=== PATIENT | female | born 1955 | race African-American/Black ===

== ENCOUNTER → 2021-03-14 | Day surgery (SDC) | payer MEDICARE ==
[~2021-03-14] VITALS: Ht 162.6 cm; Wt 68.3 kg
[~2021-03-14] MED LIST: AMOXICILLIN500 MG PO; ASCORBIC ACID500 MG PO; ASPIRIN EC81 M1 PO; DICLOFENAC SODI50 MG PO; GLUCOPHAGE XR750 MG PO; GLUCOTROL10 MG PO; LIPITOR 10MG TA10 MG PO; LISINOPRIL-HCT1 EAC2 PO; METFORMIN HCL500 M2 PO; PERCOCET 5-3251 EACH PO; SINGULAIR10 MG PO
[2021-03-14 10:31] LABS: ALBUMIN 3.7 g/dL (3.4-5.0); BILIRUBIN - TOTAL 0.6 mg/dL (0.2-1.0); BUN/CREAT RATIO (CALC) 13.4 RATIO; CREATININE 0.82 mg/dL (0.51-0.95); GLOBULIN (CALCULATION) 3.5 g/dL; POTASSIUM 3.6 mmol/L (3.5-5.1); TOTAL PROTEIN 7.2 g/dL (6.4-8.2)
[2021-03-14 10:41] LABS: HCT 38.1 % (37.0-47.0); HGB 12.4 g/dl (12.5-16.0); MCH 30.8 pg (25.0-31.0); MCHC 32.5 g/dL (32.0-36.0); MCV 94.8 fL (78.0-100.0); RBC 4.02 M/uL (4.20-5.40); RDW 13.5 % (11.5-14.0); WBC 7.8 K/uL (4.0-10.5)
== END | disposition home or self-care (01) ==
LOC: FAS 02-28 07:00
PROVIDERS: Orthopaedic Surgery
DX: G56.03 Carpal tunnel syndrome, bilateral upper limbs (principal); E11.9 Type 2 diabetes mellitus without complications; F17.210 Nicotine dependence, cigarettes, uncomplicated; I10 Essential (primary) hypertension; E78.5 Hyperlipidemia, unspecified; M19.90 Unspecified osteoarthritis, unspecified site; Z79.82 Long term (current) use of aspirin; Z79.84 Long term (current) use of oral hypoglycemic drugs; Z79.899 Other long term (current) drug therapy; Z88.5 Allergy status to narcotic agent
CPT/HCPCS: 36415; 80053; J2250; J2405; J2704; J3010; J7120

== ENCOUNTER → 2021-10-17 | Day surgery (SDC) | payer MEDICARE ==
[~2021-10-17] VITALS: Ht 162.6 cm; Wt 68.3 kg
[~2021-10-17] MED LIST changes: +LASIX20 MG PO; +VITAMIN D310 MC1 PO; +[UNRECOGNIZED DRUG - OTHER] PO
[2021-10-17 06:44] LABS: HCT 38.4 % (37.0-47.0); MCH 31.2 pg (25.0-31.0); MCHC 33.9 g/dL (32.0-36.0); MCV 92.1 fL (78.0-100.0); MPV 9.4 fL (6.0-9.5); RBC 4.17 M/uL (4.20-5.40); RDW 13.4 % (11.5-14.0); WBC 8.1 K/uL (4.0-10.5)
[2021-10-17 07:02] LABS: ALBUMIN 3.6 g/dL (3.4-5.0); BILIRUBIN - TOTAL 0.7 mg/dL (0.2-1.0); BUN/CREAT RATIO (CALC) 13.5 RATIO; CREATININE 0.89 mg/dL (0.51-0.95); GLOBULIN (CALCULATION) 3.6 g/dL; POTASSIUM 3.3 mmol/L (3.5-5.1); TOTAL PROTEIN 7.2 g/dL (6.4-8.2)
== END | disposition home or self-care (01) ==
LOC: FAS 05:57
PROVIDERS: Orthopaedic Surgery
DX: M65.841 Other synovitis and tenosynovitis, right hand (principal); M65.331 Trigger finger, right middle finger; E11.9 Type 2 diabetes mellitus without complications; F17.210 Nicotine dependence, cigarettes, uncomplicated; I10 Essential (primary) hypertension; E78.5 Hyperlipidemia, unspecified; M19.90 Unspecified osteoarthritis, unspecified site; Z79.82 Long term (current) use of aspirin; Z79.84 Long term (current) use of oral hypoglycemic drugs; Z79.899 Other long term (current) drug therapy; Z88.5 Allergy status to narcotic agent
CPT/HCPCS: 36415; 80053; 82962; J1100; J2250; J2405; J2704; J3010; J7120